=== PATIENT | male | born 1990 | race African-American/Black ===

== ENCOUNTER 2021-11-08 16:38 | Inpatient (IN) ==
[2021-11-08] MEDS ORDERED: KETOROLAC 30 MG/1 ML VIAL IV STA (22:51)
[2021-11-08 23:21] LABS: Basophils % 0.3 % (0.0-0.8); Eosinophils # 0.1 10*3/uL (0.0-0.87); Eosinophils % 1.1 % (0.00-10.9); Hematocrit 43.9 VOL% (42.0-52.0); Hemoglobin 14.1 GM/DL (14.0-18.0); Immature Granulocytes % 0.3 %; Immature Granulocytes Absolute 0.03 #; Lymphocytes # 2.4 10*3/uL (1.4-4.0); Mean Corpuscular HGB Conc 32.1 GM/DL (32-36); Mean Corpuscular Volume 97.8 FL (87-102); Mean Platelet Volume 9.8 FL (9.6-12.0); Monocytes # 0.8 10*3/uL (0.11-0.8); Monocytes % 7.1 % (1.7-12.7); Neutrophils % 68.2 % (38.7-73.9); Platelet Count 391 T/CUMM (130-400); Red Blood Count 4.49 MC/CUMM (3.8-5.5); White Blood Count 10.6 T/CUMM (4-12)
[2021-11-08 23:41] LABS: Protein,Urine 30 mg/dL (Negative); Urine Appearance Clear (Clear); Urine Color Yellow (Yellow); Urine Specific Gravity >= 1.030 (1.001-1.035); Urine pH 5.5 (4.5-8.0)
[2021-11-08 23:42] LABS: Albumin 3.9 G/DL (3.4-5.0); Bilirubin,Total 0.7 MG/DL (0.20-1.00); Bilirubin,Urine Small mg/dL (Negative); Blood, Urine Negative (Negative); Calcium 9.4 MG/DL (8.5-10.1); Glucose,Urine (UA) Negative (Negative); Ketones,Urine 15 mg/dL (Negative); Nitrite,Urine Negative (Negative); Osmolality,Calculated 280.1 MOS/KG (273-304); Potassium 3.7 MMOL/L (3.5-5.1); Total Protein 7.6 G/DL (6.4-8.2); Urine Urobilinogen 0.2 eU/dL (<2.0)
[2021-11-08 23:45] LABS: Mucus,Urine Many /LPF (Occasional); Squamous Epithelial Cell,Urine Occasional /HPF (0-10)
[2021-11-09] MEDS ORDERED: CLINDAMYCIN INJ 900 MG/50 ML PREMIX IV STA (00:40)
[2021-11-09] MEDS ORDERED: ACETAMINOPHEN 325 MG TABLET PO PRN (01:04)
[2021-11-09] MEDS ORDERED: GLUCAGON 1 MG VIAL IM PRN (01:04)
[2021-11-09] MEDS ORDERED: ONDANSETRON 4 MG/2 ML VIAL IV PRN (01:04)
[2021-11-09] MEDS ORDERED: DEXTROSE 10% 250 ML BAG IV PRN (01:51)
[2021-11-09] MEDS: PIPERACILLIN/TAZOBACTAM 3,375 MG in SODIUM CHLORIDE 0.9% 100 ML IV SCH ×3 (02:36→16:59)
[2021-11-09] MEDS: MORPHINE 2 MG/1 ML SYRINGE IV PRN ×3 (03:24→21:08)
[2021-11-09] MEDS: DOCUSATE SODIUM 100 MG CAPSULE PO SCH ×2 (09:28→21:03)
[2021-11-09] MEDS: PANTOPRAZOLE 40 MG TABLET PO SCH (09:29)
[2021-11-09] MEDS ORDERED: BUPIVACAINE MPF 0.25% 10 ML VIAL ONE (12:03)
[2021-11-09] MEDS ORDERED: LIDOCAINE 1%/EPI INJ 20 ML VIAL ONE (12:03)
[2021-11-09] MEDS ORDERED: ONDANSETRON 4 MG/2 ML VIAL ONE (12:06)
[2021-11-09] MEDS ORDERED: SEVOFLURANE 1 UNIT/15 MINUTE INH ONE (12:06)
[2021-11-09] MEDS ORDERED: propofoL 200 MG/20 ML VIAL IV ONE (12:06)
[2021-11-09] MEDS ORDERED: LIDOCAINE 2% 5 ML VIAL ONE (12:06)
[2021-11-09] MEDS ORDERED: MIDAZOLAM 2 MG/2 ML VIAL ONE (12:07)
[2021-11-09] MEDS ORDERED: fentaNYL 100 MCG/2 ML VIAL ONE (12:07)
[2021-11-09] MEDS ORDERED: ACETAMINOPHEN INJ 1,000 MG/100 ML VIAL IV ONE (12:30)
[2021-11-09] MEDS ORDERED: KETOROLAC 30 MG/1 ML VIAL ONE (12:30)
[2021-11-10] MEDS: PIPERACILLIN/TAZOBACTAM 3,375 MG in SODIUM CHLORIDE 0.9% 100 ML IV SCH ×2 (02:23→09:04)
[2021-11-10 08:07] VITALS: BP 106/53
[2021-11-10] MEDS: DOCUSATE SODIUM 100 MG CAPSULE PO SCH (09:04)
[2021-11-10] MEDS: MORPHINE 2 MG/1 ML SYRINGE IV PRN ×2 (09:04→12:13)
[2021-11-10] MEDS: PANTOPRAZOLE 40 MG TABLET PO SCH (09:04)
[2021-11-10 10:18] LABS: Basophils % 0.7 % (0.0-0.8); Eosinophils # 0.2 10*3/uL (0.0-0.87); Eosinophils % 3.5 % (0.00-10.9); Hematocrit 40.2 VOL% (42.0-52.0); Immature Granulocytes % 0.5 %; Immature Granulocytes Absolute 0.02 #; Lymphocytes # 1.2 10*3/uL (1.4-4.0); Lymphocytes % 26.8 % (21.2-54.2); Mean Corpuscular HGB Conc 32.3 GM/DL (32-36); Mean Corpuscular Volume 98.3 FL (87-102); Mean Platelet Volume 10.1 FL (9.6-12.0); Monocytes # 0.3 10*3/uL (0.11-0.8); Monocytes % 6.3 % (1.7-12.7); Neutrophils % 62.2 % (38.7-73.9); Platelet Count 371 T/CUMM (130-400); Red Blood Count 4.09 MC/CUMM (3.8-5.5); Red Cell Distribution Width 11.9 % (9.3-17.3); White Blood Count 4.3 T/CUMM (4-12)
[2021-11-10 10:43] LABS: Calcium 8.7 MG/DL (8.5-10.1); Osmolality,Calculated 281.1 MOS/KG (273-304); Potassium 3.8 MMOL/L (3.5-5.1)
== END 2021-11-10 14:00 | disposition home or self-care (01) | DRG 581 ==
LOC: N.ED 16:38 → N.5E 11-09 01:04
PROVIDERS: ADMIT Internal Medicine; ATTEND Internal Medicine